=== PATIENT | male | born 1940 | race Caucasian/White ===

== ENCOUNTER 2018-08-24 09:22 | Inpatient (IN) | payer OTHER ==
[~2018-08-24] VITALS: Ht 167.6 cm; Wt 83.9 kg
[2018-08-24] MEDS ORDERED: CATAPRES0.2 MG (09:38)
[2018-08-24] MEDS ORDERED: GLIPIZIDE ER10 MG (09:38)
[2018-08-24] MEDS ORDERED: METFORMIN HCL500 MG (09:39)
[2018-08-24] MEDS ORDERED: ACCUPRIL40 MG (09:39)
[2018-08-24] MEDS ORDERED: COZAAR25 MG (09:39)
[2018-08-24] MEDS ORDERED: GLUCOTROL10 MG (09:40)
[2018-08-24] MEDS ORDERED: MECLIZINE HCL25 MG (09:41)
--- NOTE | 2018-08-24 10:05 | NUR ---
PACIENTE ALERTA REFIERE MAREOS Y ESTA MANANA REFIERE CAERSE SIN PERDER CONOCIMIENTO .
--- NOTE | 2018-08-24 10:33 | NUR ---
SE RECIBE PACIENTE ALERTA,ACTIVO Y ORIENTADO.SE CVOLOCA EN CAMA #1 AREA DE ICU2 CRITICO ER.SE CONECTA A MONITOR CARDIACO CON SATUROMETRO.SE ORIENTA DE TRATA- MIENTO [facility].SE ADELAIDE MUESTRAS DE KACIE [facility] Y SE CANALIZA CON MEDIDAS ASEPTICAS CORRESPONDIENTES.SE COMINEZA IVF'S .45NACL A 100 MLS/HR [facility]ICA,VENA PATENTE ANGIO #20 BRAZO DERECHO,AREA CODY DE EDEMA Y/O ERITEMA.LE REALIZAN PLCA PORTABLE.BARANDAS ELVADAS POR PAREDES SEGURIDAD. SE CONTINUA MONITOREANDO EN TURNO POR CAMBIOS SIGNIFICATIVOS.
--- NOTE | 2018-08-24 15:27 | NUR ---
SE RECIBE PTE ALERTA Y ORIENTADO X3 EN CAMA CON BARANDAS ELEVADAS. SE RECIBE PTE CANALIZADO EN BRAZO DERECHO AREA CODY DE EDEMA Y DE ENROJECIMIENTO. SE RECIBE PTE CONECTADO A AMONITOR CARDIACO Y OXIMETRIA. SE RECIBE PTE CON .45NSS BAJANDO A 100ML/HR. 3:07PM SE RECIBE VALOR PANICO DE TROPONINAS EN 0.673 LAS CUALES SE NOTIFICAN A DR.RIVERA CARDOSO QUIEN REFIERE SEGUIR CON TRATAMIENTO ACTUAL.
--- NOTE | 2018-08-24 23:18 | NUR ---
SE RECIBE PACIENTE DE TURNO ANTERIOR EN UNIDAD DE CRITICO CAMA #1,PACIENTE MASCULINO,ALERTA,ORIENTADO EN DALILA ESFERAS EL CUAL SE ENCUENTRA DESCANSANDO EN CAMA NIVEL BAJO,BARANDAS ELEVADAS,FRENOS,MCGRAW DE IDENTIFICACION COLOCADOS POR SEGURIDAD. PACIENTE CONECTADO A MONITOR CARDIACO,OXIMETRIA DE PULSO CONTINUA,CANULA NASAL 2LTS.VENOPUNCION EN BRAZO RT PATENTE AREA LIMPIA,SECA, CODY DE S/S EDEMA Y/O ERITEMA.SE OBSERVA IVF'S PATENTE BAJANDO 0.45%NSS @ 100ML/HR. PACIENTE CONSULTADO CON DR.RIVERA CARDOSO EL CUAL ESTA NOTIFICADO. PACIENTE PENDIENTE TRASFER [facility].
--- NOTE | 2018-08-25 07:09 | NUR ---
SE RECIBE PEA ELRTA Y OREITNADOX 3 EL CUAL SE ENCUENTRA EN ANTHONY CON BARANDAS ELEVADAS AL MOMENTO. PTE AL MOMENTO REFIERE NO TENER DOLOR. PTE CONECTADO A MONITOR CARDIACO Y OXIMETRIA DE PULSO. SE MIDEN S/V A PTE Y SE DOCUMENTAN LOS MISMOS. PTE CON 0.45 BAJANDO A 100ML/HR. SE ORIENTA A PTE SOBRE TX MEDICO CARROLL REFIERE ENTENDER. PTE SE CONTINUA MONITORIANDO POR CAMBIOS EN PAREDES CONDICION.
--- NOTE | 2018-08-25 16:23 | NUR ---
0310PM- SE RECIBE PT EN UNIDAD DE CRITICO, ER. CUBICULO 1. ALERTA Y ORIENTADO X3 ESFERAS. PUPILAS REACCIONAN A LA PETER (PERRLA). RESPIRACIONES ESPONTANEAS. CONECTADO A MONITOR CARDIACO HR 32 Y SATUROMETRO DE PULSO 100%, RR 23. PULMONES SE AUSCULTAN WENDY. ABDOMEN BLANDO. ORINA ESPONTANEA, URINAL BEDSIDE. EXTREMIDADES INFERIORES LIBRES DE EDEMA Y/O ERITEMA. EXTREMIDADES SUPERIORES LIBRES DE EDEMA Y/O ERITEMA. EXTREMIDAD SUPERIOR IZQUIERDA CON VENOPUNCION DE ANGIO 20 PATENTE CODY DE EDEMA Y/O ERITEMA. IVFLUIDS: 0.45NSS AT 100ML/HR: SE CONECTA A BAJAR POR IVPUMP. PT TOLERA TX, TRANQUILO Y SIN DIFICULTAD RESPIRATORIA. PT CONECTADO A MONITOR CARDIACO/DEFRIBILADOR, SOLO DEEPAK MONITOR. SE MANTIENE BAJO OBSERVACION POR CAMBIOS EN LISA.
--- NOTE | 2018-08-25 17:30 | NUR ---
PT INGIERE ALIMENTOS Y TOLERA EL MISMO.
--- NOTE | 2018-08-25 18:00 | NUR ---
PT RECIBE VISITA DE DR RAMILA CARDOSO. EN LA EVALUACION RECOMIENDA ADMITIR AL PT.
--- NOTE | 2018-08-25 19:00 | NUR ---
PT RECIBE VISITA DE FAMILIARES. PT TOLERA EL MISMO.
--- NOTE | 2018-08-25 22:30 | NUR ---
PT ALERTA Y ORIENTADO X3 ESFERAS, SE WEN PT EN CAMA CON BARANDAS ELEVADAS Y FRENOS COLOCADOS, UNIDAD DE CRITICO, ER. PT ESTABLE, CONECTADO A MONITOR CARDIACO Y SATUROMETRO DE PULSO. VENOPUNCION E IVLFUIDS PATENTES. PT TOLERA TX, TRANQUILA Y SIN DIFICULTAD RESPIRATORIA. PENDIENTE RE-EVALUACION MEDICA.
--- NOTE | 2018-08-25 23:39 | NUR ---
SE RECIBE PTE MASCULINO ALERTA Y ORIENTADO X3,EN CAMA #1 ICU ER,CONECTADO A MONITOR CARDIACO JUDY Y MONITOR CON DESFIBRILADOR ADICIONAL,SE MANTIENEN CON H/L PATENTE CON IVF AREA CODY DE EDEMA Y ENROJECIMIENTO,PTE ORIENA ESPONTANEO,SE REALIZAN S/V,Y SE MANTIENE EN VIGILANCIA JUDY POR CAMBIOS.
--- NOTE | 2018-08-25 23:54 | NUR ---
SE COMUNICA CONMIGO ,ESTA REALIZA ORDEN TELEFONICA DE MEDICAMENTOS LO CUAL SE REALIZA,SE ADMINISTRARA A PTE APRESOLINE 25MG PO STAT.
--- NOTE | 2018-08-26 03:46 | NUR ---
SE REALIZA B/P 220/80 Y SE ADMINISTRA MEDICANTO [facility] MEDICA
--- NOTE | 2018-08-26 08:31 | NUR ---
SE RECIBVE PACIENTE ALERTA Y ORIENTADO , CONECTADO A MONITOR CARDIACO PACIENTE EN CONSULTA CON DR.RIVERAS CARDOSO EN EVALUACION. SE RISHABH S/V . SE RISHABH MANUAL 220/80 PACIENTE SE MANTIEINE OBSERVACION Y SE MANTIEIECON IVF PATNETE CODY D EDEMA 0/45%NSS BAJANDO A 100ML/HR .
--- NOTE | 2018-08-26 15:00 | NUR ---
PACIENTE ALERTA Y ORIENTADO X3. EN POSICION SEMISENTADO CON BARANDAS ELEVADAS Y INTERCOM ACCESIBLE EN CAMA. BUEN PATRON RESPIRATORIO RECIBIENDO OXIGENO POR CANULA NASAL A 2 LITROS Y SATURANDO OXIGENO MANUAL A 98%. CONECTADO A MONITOR CARDIACO PRESENTANDO UN RITMO IRREGULAR. ABDOMEN DEPRESIBLE AL TACTO Y PERISTALSIS PRESENTE. ELIMINANDO ORINA DE FORMA EXPONTANEA COLOR AMARILLO JACOB. PACIENTE CON IV FLUID PATENTE Y CODY DE EDEMA Y ERITEMA. 0.45% SS DE 1,000ML BAJANDO A 100ML/HR. 1700 SE ADMINISTRA MEDICAMENTO [facility] MEDICA. PACIENTE CON BP 200/70MMHG. DR. SAMMY CARDOSO EVALUA A PACIENTE Y REFIERE ADMINISTRAR VASOTEC 2.5MG IV STAT LUEGO MEDIR BP EN 1 HORA SI NO MEJORA ADMINISTRAR LOSARTAN 100MG PO. SE MANTIENE BAJO OBSERVACION POR CAMBIOS SIGNIFICATIVOS. PACIENTE INGIRIO PAREDES DIETA EN PAREDES TOTALIDAD.
[2018-08-31] MEDS ORDERED: LOSARTAN POTAS100 MG PO (12:03)
[2018-08-31] MEDS ORDERED: ALDOMET250 MG PO (12:03)
[2018-08-31] MEDS ORDERED: HYDRALAZINE HCL50 MG PO (12:04)
== END 2018-08-31 13:35 | disposition home or self-care (01) | DRG 310 ==
LOC: ER 09:22 → ICU-2 08-26 20:56 → ICU 08-27 22:32 → MEDI 08-31 01:42
PROVIDERS: ADMIT Internal Medicine Cardiovascular Disease
DX: I44.1 Atrioventricular block, second degree (principal); R42 Dizziness and giddiness; I10 Essential (primary) hypertension; E11.9 Type 2 diabetes mellitus without complications; Z79.4 Long term (current) use of insulin; R03.0 Elevated blood-pressure reading, without diagnosis of hypertension